=== PATIENT | male | born 1965 | race Caucasian/White ===

== ENCOUNTER 2016-10-15 10:21 | Emergency (ER) | payer OTHER ==
[2016-10-15 11:10] LABS: BASOPHILS 0.6 % (0-2); EOSINOPHILS 4.8 % (0-7); HEMATOCRIT 43.9 % (42.0-54.0); HEMOGLOBIN 14.9 g/dL (13.5-17.5); IMMATURE GRANULOCYTES 0.4 % (0-5); LYMPHOCYTES 25.5 % (15-50); MCH 29.6 pg (26.0-34.0); MCHC 33.9 g/dL (31.0-37.0); MCV 87.3 fL (80.0-100.0); MEAN PLATELET VOLUME 9.9 fL (7.4-10.4); MONOCYTES 13.2 % (2-11); NEUTROPHILS 55.5 % (40-80); PLATELET COUNT 154 10x3/uL (130-400); RBC 5.03 10x6/uL (4.20-6.10); RDW 13.1 % (11.5-14.5); WBC 4.6 10x3/uL (4.8-10.8)
[2016-10-15 11:27] LABS: ALBUMIN 3.8 g/dL (3.4-5.0); ANION GAP 11.3 mmol/L (8-16); BILIRUBIN - TOTAL 0.67 mg/dL (0.2-1.3); CALCIUM 8.9 mg/dL (8.5-10.1); CARBON DIOXIDE 27.8 mmol/L (21.0-32.0); CREATININE - SERUM 1.2 mg/dL (0.6-1.3); POTASSIUM - SERUM 4.1 mmol/L (3.5-5.1); PROTEIN - SERUM 7.7 g/dL (6.4-8.2)
== END 2016-10-15 12:18 | disposition home or self-care (01) ==
LOC: D.ER 10:21
PROVIDERS: Family Medicine
DX: T78.3XXA Angioneurotic edema, initial encounter (principal); T37.0X5A Adverse effect of sulfonamides, initial encounter; Y92.89 Other specified places as the place of occurrence of the external cause